=== PATIENT | male | born 1960 | race Two or more races ===

== ENCOUNTER 2023-01-13 08:10 | Day surgery (SDC) | payer MEDICARE ==
[~2023-01-13] VITALS: Ht 190.5 cm; Wt 99.8 kg
[~2023-01-13 08:10] MED LIST: BAYER ASPIRIN E81 MG PO; DILTIAZEM30 MG PO; OXYCODONE20 M1 PO; TRAZODONE50 MG PO; XTAMPZA ER9 MG
[2023-01-13] MEDS ORDERED: PERCOCET 5/325M1 TAB PO (10:16)
[2023-01-13 15:02] VITALS: BP 142/74
[2023-01-19] MEDS ORDERED: DILAUDID2 MG PO (11:10)
== END 2023-01-13 12:05 | disposition home or self-care (01) ==
LOC: ORM 08:10
PROVIDERS: ATTEND Surgery
PROC: 0YQ50ZZ Repair Right Inguinal Region, Open Approach (ICD-10-PCS; principal; 2023-01-13)
DX: K40.91 Unilateral inguinal hernia, without obstruction or gangrene, recurrent (principal); D17.6 Benign lipomatous neoplasm of spermatic cord; F17.200 Nicotine dependence, unspecified, uncomplicated
CPT/HCPCS: C9290; J0131; J0690; J1100